=== PATIENT | male | born 1980 | race Caucasian/White ===

== ENCOUNTER 2019-06-07 11:36 | Inpatient (IN) | payer OTHER ==
[~2019-06-07] VITALS: Ht 180.3 cm; Wt 75.9 kg
[2019-06-07] MEDS ORDERED: VILA40TA PO (12:15)
[2019-06-07] MEDS ORDERED: AMPH20TA3 PO (12:15)
[2019-06-07] MEDS ORDERED: ALPR1TAB7 PO (12:15)
[2019-06-07] MEDS ORDERED: ACETAMINOPHEN 325 MG TABLET PO PRN (12:30)
[2019-06-07] MEDS ORDERED: MAGNESIUM HYDROXIDE SUSPENSION 30 ML UDCUP PO PRN (12:30)
[2019-06-07 12:35] LABS: BASOPHILS % (AUTO) 0.4 % (0.0-2.0); EOSINOPHILS % (AUTO) 0.2 % (1.0-6.0); HEMATOCRIT 47.1 % (41-53); HEMOGLOBIN 15.6 g/dL (13.5-17.5); LYMPHOCYTES # (AUTO) 1.3 K/uL (1.0-4.8); LYMPHOCYTES % (AUTO) 17.5 % (22.0-44.0); MEAN CORPUSCULAR HEMOGLOBIN 30.3 pg (26.0-34.0); MEAN CORPUSCULAR HGB CONC 33.2 G/dL (31.0-37.0); MEAN CORPUSCULAR VOLUME 91 fL (80-100); MONOCYTES # (AUTO) 0.4 K/uL (0.1-1.0); NEUTROPHILS # (AUTO) 5.7 K/uL (1.8-7.7); NEUTROPHILS % (AUTO) 76.9 % (40.0-70.0); PLATELET COUNT (AUTO) 259 K/uL (150-450); RED BLOOD CELL COUNT(AUTO) 5.16 MIL/uL (4.50-5.90); RED CELL DISTRIBUTION WIDTH 14.1 % (11.5-14.5)
[2019-06-07 12:44] LABS: ANION GAP 4 mmol/L (8-16); CALCIUM, TOTAL 9.3 mg/dL (8.8-10.5); CARBON DIOXIDE 33 mmol/L (22-29); CHLORIDE 101 mmol/L (98-107); CREATININE 1.27 mg/dL (0.60-1.30); GLOMERULAR FILTR. RATE CALC > 60 mL/min (>60); GLUCOSE,RANDOM 100 mg/dL (70-110); POTASSIUM 4.8 mmol/L (3.5-5.1); SODIUM SERUM 138 mmol/L (136-145); UREA NITROGEN, BLOOD 23 mg/dL (7-18)
[2019-06-07 12:49] LABS: ALANINE AMINOTRANSFERASE 57 U/L (12-78); ALBUMIN 4.4 g/dL (3.4-5.0); ALKALINE PHOSPHATASE 93 U/L (46-116); ASPARTATE AMINOTRANSFERASE 23 U/L (15-37); BILIRUBIN,TOTAL 0.4 mg/dL (0.1-1.0); TOTAL PROTEIN, SERUM 7.6 g/dL (6.4-8.2)
[2019-06-07 13:14] VITALS: BP 147/85
[2019-06-07 16:08] VITALS: BP 118/63
[2019-06-07] MEDS: LORazepam 1 MG TABLET PO PRN (17:18)
[2019-06-07 20:50] VITALS: BP 114/72
[2019-06-08] MEDS: HydrOXYzine HCL 25 MG TABLET PO PRN ×3 (00:46→23:16)
[2019-06-08] MEDS: LORazepam 1 MG TABLET PO PRN ×4 (00:46→23:16)
[2019-06-08 00:50] VITALS: BP 104/50
[2019-06-08 06:40] VITALS: BP 122/60
[2019-06-08 07:58] VITALS: BP 105/54
[2019-06-08 15:44] VITALS: BP 117/56
[2019-06-08] MEDS: CITALOPRAM HYDROBROMIDE 20 MG TABLET PO SCH (16:30)
[2019-06-08 20:31] VITALS: BP 105/69
[2019-06-09 05:58] VITALS: BP 97/50
[2019-06-09 07:40] VITALS: BP 120/67
[2019-06-09] MEDS: HydrOXYzine HCL 25 MG TABLET PO PRN ×2 (08:50→21:39)
[2019-06-09] MEDS: LORazepam 1 MG TABLET PO PRN ×3 (08:50→21:40)
[2019-06-09] MEDS: CITALOPRAM HYDROBROMIDE 20 MG TABLET PO SCH (08:50)
[2019-06-09 15:30] VITALS: BP 114/60
[2019-06-09 19:12] VITALS: BP 116/56
[2019-06-09 20:40] VITALS: BP 111/60
[2019-06-10] MEDS: LORazepam 1 MG TABLET PO PRN ×2 (04:23→08:38)
[2019-06-10 06:14] VITALS: BP 96/52
[2019-06-10 07:50] VITALS: BP 105/64
[2019-06-10] MEDS: CITALOPRAM HYDROBROMIDE 20 MG TABLET PO SCH (08:38)
[2019-06-10] MEDS: HydrOXYzine HCL 25 MG TABLET PO PRN (08:38)
[2019-06-10] MEDS ORDERED: CITA10TA68 PO (10:30)
== END 2019-06-10 11:40 | DRG 897 ==
LOC: EMS 11:42 → 6S 12:27 → EMS 12:31
PROVIDERS: ADMIT Internal Medicine; ATTEND Internal Medicine
DX: F13.239 Sedative, hypnotic or anxiolytic dependence with withdrawal, unspecified (principal); F43.10 Post-traumatic stress disorder, unspecified; F32.9 Major depressive disorder, single episode, unspecified; Z87.891 Personal history of nicotine dependence

== ENCOUNTER 2023-09-20 04:26 | Emergency (ER) | payer MEDICAID, OTHER ==
[~2023-09-20] VITALS: Ht 180.3 cm; Wt 95.0 kg
[~2023-09-20 04:26] MED LIST: CITA10TA99 PO
[2023-09-20 04:28] VITALS: BP 129/87; PULSE 85; RESP 16; TEMP 98.2
[2023-09-20 05:48] LABS: HEMATOCRIT 48.4 % (41-53); LYMPHOCYTES # (AUTO) 2.7 K/uL (1.0-4.8); LYMPHOCYTES % (AUTO) 28.7 % (22.0-44.0); NEUTROPHILS # (AUTO) 5.7 K/uL (1.8-7.7)
[2023-09-20 05:52] LABS: BASOPHILS % (AUTO) 0.5 % (0.0-2.0); EOSINOPHILS % (AUTO) 1.1 % (1.0-6.0); HEMOGLOBIN 16.3 g/dL (13.5-17.5); MEAN CORPUSCULAR HEMOGLOBIN 32.3 pg (26.0-34.0); MEAN CORPUSCULAR HGB CONC 33.7 G/dL (31.0-37.0); MEAN CORPUSCULAR VOLUME 96 fL (80-100); MONOCYTES # (AUTO) 0.8 K/uL (0.1-1.0); MONOCYTES % (AUTO) 8.3 % (2.0-9.0); NEUTROPHILS % (AUTO) 61.4 % (40.0-70.0); PLATELET COUNT (AUTO) 280 K/uL (150-450); RED BLOOD CELL COUNT(AUTO) 5.06 MIL/uL (4.50-5.90); RED CELL DISTRIBUTION WIDTH 15.2 % (11.5-14.5); WHITE BLOOD COUNT (AUTO) 9.3 K/uL (4.5-11.0)
[2023-09-20 05:56] LABS: ALCOHOL, URINE DRUG SCREEN POSITIVE (NEGATIVE); AMPHET/METH SCREEN,URINE NEGATIVE (NEGATIVE); BARBITURATE SCREEN, URINE NEGATIVE (NEGATIVE); BENZODIAZEPINES SCREEN,URINE POSITIVE (NEGATIVE); CANNABINOID SCREEN,URINE NEGATIVE (NEGATIVE); COCAINE SCREEN,URINE NEGATIVE (NEGATIVE); METHADONE SCREEN, URINE NEGATIVE (NEGATIVE); OPIATE SCREEN,URINE NEGATIVE (NEGATIVE); PHENCYCLIDINE SCREEN,URINE NEGATIVE (NEGATIVE)
[2023-09-20 05:58] LABS: ANION GAP 10 mmol/L (8-16); CALCIUM, TOTAL 9.5 mg/dL (8.8-10.5); CARBON DIOXIDE 36 mmol/L (22-29); CHLORIDE 98 mmol/L (98-107); CREATININE 0.95 mg/dL (0.60-1.30); GLOMERULAR FILTR. RATE CALC > 60 mL/min (>60); GLUCOSE,RANDOM 95 mg/dL (70-110); SODIUM SERUM 144 mmol/L (136-145); UREA NITROGEN, BLOOD 15 mg/dL (7-18)
[2023-09-20 06:00] LABS: ALCOHOL, BLOOD (SERUM) 59 mg/dL (0-10); LIPASE 52 U/L (16-77)
[2023-09-20] MEDS: ChlordiazePOXIDE HCL 25 MG CAPSULE PO ONE (06:35)
[2023-09-20] MEDS: POTASSIUM CHLORIDE 20 MEQ ER TABLET PO ONE (06:36)
== END 2023-09-20 08:53 | disposition home or self-care (01) ==
LOC: EMS 04:28
DX: F10.239 Alcohol dependence with withdrawal, unspecified (principal); F41.9 Anxiety disorder, unspecified; F32.9 Major depressive disorder, single episode, unspecified; F17.210 Nicotine dependence, cigarettes, uncomplicated; Z59.00 Homelessness unspecified
CPT/HCPCS: 99283; 80048; 83690; 85025; 36415; 80307; G0480